=== PATIENT | female | born 1975 | race Caucasian/White ===

== ENCOUNTER 2017-09-04 18:49 | Emergency (ER) | payer MEDICAID ==
[~2017-09-04 18:49] MED LIST: BUPRENORPHINE HC8 MG SL; IBUPROFEN600 MG PO; METHYLDOPA500 MG PO; PERCOCET 5-3251 TAB PO; ZOFRAN4 MG PO
== END 2017-09-04 21:17 | disposition home or self-care (01) ==
LOC: D.ER 18:49
DX: L03.012 Cellulitis of left finger (principal); F17.200 Nicotine dependence, unspecified, uncomplicated

== ENCOUNTER 2020-05-29 18:26 | Emergency (ER) | payer MEDICAID ==
[~2020-05-29] VITALS: Ht 162.6 cm; Wt 90.9 kg
[2020-05-29 18:33] VITALS: Ht 162.6 cm; Wt 90.9 kg
[2020-05-29 19:08] LABS: BASOPHILS 0.2 % (0-2); HEMATOCRIT 43.9 % (36.0-48.0); HEMOGLOBIN 14.4 g/dL (12-16); IMMATURE GRANULOCYTES 0.3 % (0-5); LYMPHOCYTES 16.2 % (15-50); MCHC 32.8 g/dL (31.0-37.0); MCV 88.3 fL (80.0-100.0); MONOCYTES 6.9 % (2-11); NEUTROPHILS 75.4 % (40-80); RBC 4.97 10x6/uL (4.00-5.40); RDW 13.2 % (11.5-14.5); WBC 12.1 10x3/uL (4.8-10.8)
[2020-05-29 19:09] LABS: PLATELET COUNT 215 10x3/uL (130-400)
[2020-05-29 19:20] LABS: ANION GAP 9.8 mmol/L (8-16); CALCIUM 8.7 mg/dL (8.5-10.1); CARBON DIOXIDE 33.5 mmol/L (21.0-32.0); CREATININE - SERUM 0.9 mg/dL (0.6-1.3); POTASSIUM - SERUM 3.3 mmol/L (3.5-5.1)
[2020-05-29 19:26] LABS: ALBUMIN 3.5 g/dL (3.4-5.0); BILIRUBIN - TOTAL 0.63 mg/dL (0.2-1.3); MAGNESIUM - SERUM 1.8 mg/dL (1.8-2.4)
[2020-05-29 20:24] LABS: BILIRUBIN NEGATIVE (NEGATIVE); HCG URINE NEGATIVE (NEGATIVE); KETONE NEGATIVE (NEGATIVE); NITRITE NEGATIVE (NEGATIVE); UROBILINOGEN NORMAL (NORMAL)
[2020-05-29 20:27] LABS: BACTERIA MANY /hpf (NONE SEEN); EPITHELIAL CELLS 0-5 /hpf (0-5); WHITE CELLS - URINE >50 /hpf (0-5)
[2020-05-29 20:28] LABS: UDS - AMPHET NEGATIVE QUAL (NEGATIVE); UDS - BARB NEGATIVE QUAL (NEGATIVE); UDS - BENZO NEGATIVE QUAL (NEGATIVE); UDS - COCAINE NEGATIVE QUAL (NEGATIVE); UDS - OPIATE NEGATIVE QUAL (NEGATIVE); UDS - PCP NEGATIVE QUAL (NEGATIVE); UDS - THC POSITIVE QUAL (NEGATIVE)
[2020-05-29] MEDS ORDERED: MACROBID100 MG PO (21:37)
--- NOTE | 2020-05-29 21:56 | NUR ---
DR NORIEGA NOTIFIED AND REVIEWED PT's BEHAVIOR AND ASSESSMENT RESULT. PT IS A LOW RISK PER DR NORIEGA. DR NORIEGA STATED TO GIVE RESOURCES TO PT AT TIME OF DISCHARGE. NO FURTHER ORDERS AT THIS TIME. RESOURCES REVIEWED WITH PT AND SHE VERBALIZED UNDERSTANDING.
[2020-05-30 07:11] VITALS: BP 125/78
== END 2020-05-30 07:11 ==
LOC: D.ER 18:26
PROVIDERS: Emergency Medicine
DX: N39.0 Urinary tract infection, site not specified (principal); F32.9 Major depressive disorder, single episode, unspecified; R45.851 Suicidal ideations; I10 Essential (primary) hypertension; E11.9 Type 2 diabetes mellitus without complications; F17.200 Nicotine dependence, unspecified, uncomplicated